=== PATIENT | male | born 1955 | race Caucasian/White ===

== ENCOUNTER 2021-04-10 17:48 | Observation (INO) | payer OTHER ==
[~2021-04-10] VITALS: Ht 190.5 cm; Wt 104.3 kg
[2021-04-10 18:35] LABS: HEMOGLOBIN 16.9 gm/dl (14.0-17.5); RED BLOOD COUNT 5.54 M/UL (4.20-5.50); WHITE BLOOD COUNT 11.3 K/UL (4.5-11.0)
[2021-04-10 19:16] LABS: BUN/CREATININE RATIO 17 (0-10)
[2021-04-11] MEDS ORDERED: GLUCOPHAGE 500500 MG GT (02:56)
[2021-04-11] MEDS ORDERED: GLIPIZIDE10 MG PO (02:57)
[2021-04-11] MEDS ORDERED: LEVOTHYROXINE50 MCG PO (02:57)
[2021-04-11] MEDS ORDERED: PRAVASTATIN SOD20 MG PO (02:58)
[2021-04-11] MEDS ORDERED: LISINOPRIL10 MG PO (02:58)
[2021-04-11] MEDS ORDERED: TRULICITY0.75 MG/0. SQ (03:00)
[2021-04-11 07:56] LABS: HEMOGLOBIN 14.5 gm/dl (14.0-17.5); RED BLOOD COUNT 4.69 M/UL (4.20-5.50); WHITE BLOOD COUNT 6.3 K/UL (4.5-11.0)
[2021-04-11 08:04] LABS: BUN/CREATININE RATIO 12 (0-10)
== END 2021-04-11 13:38 | disposition home or self-care (01) ==
LOC: ER1 17:48 → M/S 21:36 → CDU 21:36 → M/S 04-11 02:20
PROVIDERS: Physician Assistant; ADMIT Internal Medicine
DX: R10.84 Generalized abdominal pain (principal); E11.9 Type 2 diabetes mellitus without complications; I10 Essential (primary) hypertension; E78.5 Hyperlipidemia, unspecified; R74.01 Elevation of levels of liver transaminase levels; E86.0 Dehydration; R11.0 Nausea; E03.9 Hypothyroidism, unspecified; R74.02 Elevation of levels of lactic acid dehydrogenase [LDH]; Z80.0 Family history of malignant neoplasm of digestive organs; Z20.822 Contact with and (suspected) exposure to COVID-19
CPT/HCPCS: 36415; 80053; 81001; 82150; 82550; 82553; 82962; 83605; 83690; 84484; 85025; 87040; 87086; C9113; G0378; J2270; J2405; J7030; Q9967; U0002